=== PATIENT | male | born 1985 | race Caucasian/White ===

== ENCOUNTER 2016-06-03 16:03 | Emergency (ER) | payer MEDICARE, OTHER ==
[2016-06-03] MEDS ORDERED: Naproxen 500 MG TAB ONE (17:42)
[2016-06-03] MEDS ORDERED: Acetaminophen/Codeine 30-300mg Tablet ONE (17:42)
--- NOTE | 2016-06-03 18:44 | RAD ---
RIGHT ELBOW 2 VIEWS: HISTORY: Fall. COMPARISON: None. FINDINGS: Exam was limited with only 2 views. No displaced fracture is appreciated. No significant joint eff usion. IMPRESSION: No acute fracture or malalignment on these limited 2 views. POS: [facility]
--- NOTE | 2016-06-03 18:45 | RAD ---
TWO VIEWS OF THE RIGHT FOREARM: INDICATION: Fall with right arm pain. FINDINGS: No acute fracture or subluxation is evident. Radiocapitellar alignment is within normal limits. IMPRESSION: No acute osseous abnormality. POS: [facility]
--- NOTE | 2016-06-03 18:47 | RAD ---
RIGHT TIBIA FIBULA 2 VIEWS: HISTORY: Fall. COMPARISON: None. FINDINGS: The tibia and fibula are without displaced fracture. Soft tissues are unremarkable. IMPRESSION: No acute fracture of the tibia or fibula. POS: [facility]
--- NOTE | 2016-06-03 18:50 | RAD ---
RIGHT KNEE 4 VIEWS: HISTORY: Fall, right knee pain. FINDINGS/IMPRESSION: No fracture or dislocation is seen. There is some fullness in the supraclavicular pouch suspicious for a joint effusion. POS: [facility]
== END 2016-06-03 17:49 | disposition home or self-care (01) ==
LOC: MADERS 16:03
DX: S50.11XA Contusion of right forearm, initial encounter (principal); S80.01XA Contusion of right knee, initial encounter; W19.XXXA Unspecified fall, initial encounter

== ENCOUNTER 2016-06-17 00:56 | Emergency (ER) | payer MEDICARE, OTHER | END 2016-06-17 02:46 | disposition left against medical advice (07) | LOC: MADERS 00:56 | DX: Z53.21 Procedure and treatment not carried out due to patient leaving prior to being seen by health care provider (principal) ==

== ENCOUNTER 2017-12-31 13:50 | Emergency (ER) | payer MEDICARE, MEDICAID | END 2017-12-31 15:36 | disposition home or self-care (01) | LOC: MADERS 13:50 | DX: J06.9 Acute upper respiratory infection, unspecified (principal) | CPT/HCPCS: 99283 ==

== ENCOUNTER 2019-09-28 13:20 | Emergency (ER) | payer MEDICAID, MEDICARE, OTHER | END 2019-09-28 14:40 | disposition home or self-care (01) | LOC: MADERS 13:20 | DX: H60.92 Unspecified otitis externa, left ear (principal); I10 Essential (primary) hypertension | CPT/HCPCS: 99282 ==

== ENCOUNTER 2019-11-25 15:06 | Emergency (ER) | payer MEDICARE, OTHER ==
[2019-11-25] MEDS ORDERED: Fluorescein Opthalmic Strip ONE (16:45)
[2019-11-25] MEDS ORDERED: Tetracaine 0.5% PF 4 ML BOT ONE (16:45)
[2019-11-25] MEDS ORDERED: Boostrix 0.5 ML (Tdap) VIAL ONE (17:22)
== END 2019-11-25 17:30 | disposition home or self-care (01) ==
LOC: MADERS 15:06
DX: S05.01XA Injury of conjunctiva and corneal abrasion without foreign body, right eye, initial encounter (principal); W22.8XXA Striking against or struck by other objects, initial encounter
CPT/HCPCS: 90471; 90715

== ENCOUNTER 2025-02-18 08:09 | Emergency (ER) | payer MEDICARE, OTHER | END 2025-02-18 09:05 | disposition home or self-care (01) | LOC: MADERS 08:09 | DX: J10.1 Influenza due to other identified influenza virus with other respiratory manifestations (principal) | CPT/HCPCS: 87428; 99283 ==